=== PATIENT | male | born 1975 | race Caucasian/White ===

== ENCOUNTER → 2017-11-30 | Outpatient (CLI) | payer OTHER ==
[2017-11-30 09:21] LABS: BASOPHILS ABSOLUTE AUTO 0.09 K/mm3 (0.00-0.23); BASOPHILS PERCENT AUTO 1 % (0-2); EOSINOPHILS ABSOLUTE AUTO 0.31 K/mm3 (0.00-0.68); EOSINOPHILS PERCENT AUTO 4 % (0-6); Hematocrit 46.3 % (37.0-53.0); Hemoglobin 16.1 g/dL (13.5-17.5); IMMATURE GRAN ABSOLUTE AUTO 0.02 K/mm3 (0.00-0.10); IMMATURE GRAN PERCENT AUTO 0 % (0-1); LYMPHOCYTES ABSOLUTE AUTO 1.28 K/mm3 (0.84-5.20); LYMPHOCYTES PERCENT AUTO 17 % (21-46); MONOCYTES PERCENT AUTO 8 % (4-13); Mean Corpuscular HGB 31.7 pg (26.0-34.0); Mean Corpuscular HGB Conc 34.8 g/dL (31.5-36.5); Mean Corpuscular Volume 91 fL (80-100); Mean Platelet Volume 10.2 fL (9.1-12.4); NEUTROPHILS ABSOLUTE AUTO 5.13 K/mm3 (1.96-9.15); NEUTROPHILS PERCENT AUTO 69 % (41-73); Platelet Count 246 K/mm3 (150-400); RDW Coefficient Variation 12.2 % (11.7-14.2); RDW Standard Deviation 40.7 fL (35.1-46.3); Red Blood Cell Count 5.08 M/mm3 (4.30-5.90); White Blood Cell Count 7.43 K/mm3 (4.00-11.30)
[2017-11-30 12:52] LABS: Alanine Aminotransfer (ALT/SGP 76 U/L (12-78); Albumin, Blood 4.2 g/dL (3.4-5.0); Alk Phos 69 U/L (50-136); Anion Gap 8 mmol/L (6-16); Aspartate Aminotrans (AST/SGOT 47 U/L (12-37); Bilirubin, Total 0.6 mg/dL (0.1-1.0); Blood Urea Nitrogen 12 mg/dL (8-24); Bun/Creatinine Ratio 14.8 (12.0-20.0); CO2, Blood 26 mmol/L (21-32); Chloride, Blood 104 mmol/L (98-108); Creatinine, Blood 0.81 mg/dL (0.60-1.20); Globulin, Blood 4.1 g/dL (2.2-4.0); Glomerular Filtration Rate >60 (60-); Glucose, Blood 89 mg/dL (70-99); Sodium, Blood 138 mmol/L (136-145); Total Protein, Blood 8.3 g/dL (6.4-8.2)
== END | disposition home or self-care (01) ==
LOC: LAB SHORT 09:17 → LAB EV 09:17
PROVIDERS: General Practice
DX: B18.2 Chronic viral hepatitis C (principal)
CPT/HCPCS: 80053; 85025; 85651

== ENCOUNTER → 2018-05-20 | Outpatient (CLI) | payer OTHER ==
[2018-05-20 13:37] LABS: BASOPHILS ABSOLUTE AUTO 0.08 K/mm3 (0.00-0.23); BASOPHILS PERCENT AUTO 1 % (0-2); EOSINOPHILS ABSOLUTE AUTO 0.36 K/mm3 (0.00-0.68); EOSINOPHILS PERCENT AUTO 4 % (0-6); Hematocrit 45.6 % (37.0-53.0); Hemoglobin 15.7 g/dL (13.5-17.5); IMMATURE GRAN ABSOLUTE AUTO 0.03 K/mm3 (0.00-0.10); IMMATURE GRAN PERCENT AUTO 0 % (0-1); LYMPHOCYTES ABSOLUTE AUTO 1.12 K/mm3 (0.84-5.20); LYMPHOCYTES PERCENT AUTO 13 % (21-46); MONOCYTES ABSOLUTE AUTO 0.72 K/mm3 (0.16-1.47); MONOCYTES PERCENT AUTO 9 % (4-13); Mean Corpuscular HGB 31.9 pg (26.0-34.0); Mean Corpuscular HGB Conc 34.4 g/dL (31.5-36.5); Mean Corpuscular Volume 93 fL (80-100); Mean Platelet Volume 10.5 fL (9.1-12.4); NEUTROPHILS ABSOLUTE AUTO 6.03 K/mm3 (1.96-9.15); NEUTROPHILS PERCENT AUTO 72 % (41-73); Platelet Count 212 K/mm3 (150-400); RDW Coefficient Variation 12.4 % (11.7-14.2); RDW Standard Deviation 42.3 fL (35.1-46.3); Red Blood Cell Count 4.92 M/mm3 (4.30-5.90); White Blood Cell Count 8.34 K/mm3 (4.00-11.30)
== END | disposition home or self-care (01) ==
LOC: LAB EV 13:32 → LAB SHORT 13:32
PROVIDERS: Family Medicine
DX: T14.90XA Injury, unspecified, initial encounter (principal)
CPT/HCPCS: 85025; 85379

== ENCOUNTER 2018-11-30 05:49 | Emergency (ER) | payer OTHER ==
[~2018-11-30] VITALS: Ht 188 cm; Wt 70.3 kg
[2018-11-30] MEDS ORDERED: LAMICTAL ODT200 MG PO (07:36)
== END 2018-11-30 08:53 | disposition home or self-care (01) ==
LOC: ER 05:49
DX: S86.912A Strain of unspecified muscle(s) and tendon(s) at lower leg level, left leg, initial encounter (principal); Z88.8 Allergy status to other drugs, medicaments and biological substances; Z79.899 Other long term (current) drug therapy; X50.1XXA Overexertion from prolonged static or awkward postures, initial encounter
CPT/HCPCS: 29505; 73562-LT; 99283-25

== ENCOUNTER 2019-05-11 18:17 | Inpatient (IN) | payer OTHER ==
[~2019-05-11] VITALS: Ht 188 cm; Wt 71.1 kg
[~2019-05-11 18:17] MED LIST: LAMICTAL200 MG PO
[2019-05-11] MEDS ORDERED: QUETIAPINE FUM100 MG PO (18:33)
[2019-05-11 19:02] LABS: BASOPHILS ABSOLUTE AUTO 0.03 K/mm3 (0.00-0.23); BASOPHILS PERCENT AUTO 0 % (0-2); EOSINOPHILS PERCENT AUTO 0 % (0-6); Hemoglobin 15.8 g/dL (13.5-17.5); IMMATURE GRAN PERCENT AUTO 1 % (0-1); LYMPHOCYTES PERCENT AUTO 3 % (21-46); MONOCYTES ABSOLUTE AUTO 1.45 K/mm3 (0.16-1.47); MONOCYTES PERCENT AUTO 9 % (4-13); Mean Corpuscular HGB 32.4 pg (26.0-34.0); Mean Corpuscular HGB Conc 34.3 g/dL (31.5-36.5); Mean Corpuscular Volume 95 fL (80-100); Mean Platelet Volume 10.1 fL (9.1-12.4); NEUTROPHILS ABSOLUTE AUTO 13.45 K/mm3 (1.96-9.15); NEUTROPHILS PERCENT AUTO 87 % (41-73); Platelet Count 208 K/mm3 (150-400); RDW Coefficient Variation 13.6 % (11.7-14.2); RDW Standard Deviation 47.1 fL (35.1-46.3); Red Blood Cell Count 4.87 M/mm3 (4.30-5.90); White Blood Cell Count 15.53 K/mm3 (4.00-11.30)
[2019-05-11 19:08] LABS: Source, Urine Clean Catch
[2019-05-11 19:11] LABS: Bilirubin, Urine Neg (Neg); Blood, Urine 5+ (Neg); Glucose Qualitative, Urine Neg (Neg); Ketones, Urine 3+ (Neg); Leukocyte Esterase, Urine 1+ (Neg); Nitrite, Urine Neg (Neg); Protein, Urine 3+ (Neg); Urobilinogen, Urine NORM (Normal)
[2019-05-11 19:16] LABS: Appearance, Urine Clear (Clear); Color, Urine Yellow (P-Yellow)
[2019-05-11 19:18] LABS: Bacteria Few /hpf; Squamous Epithelial Cells Few /hpf (Few)
[2019-05-11 19:21] LABS: U Amphetamine Screen Not Detected; U Barbituate Screen Not Detected; U Benzodiazapine Screen Not Detected; U Cannabinoids Screen DETECTED; U Cocaine Screen Not Detected; U Methadone Screen Not Detected; U Methamphetamine Screen Not Detected; U Opiates Screen Not Detected; U Phencyclidine Screen Not Detected
[2019-05-11 19:22] LABS: U Buprenorphine Screen Not Detected; U Oxycodone Screen Not Detected; U Propoxyphene Screen Not Detected
[2019-05-11 19:26] LABS: Alanine Aminotransfer (ALT/SGP 207 U/L (12-78); Albumin, Blood 4.2 g/dL (3.4-5.0); Albumin/Globulin Ratio 1.1 (0.8-1.8); Alk Phos 83 U/L (50-136); Anion Gap 7 mmol/L (6-16); Aspartate Aminotrans (AST/SGOT 668 U/L (12-37); Bilirubin, Total 1.3 mg/dL (0.1-1.0); Blood Urea Nitrogen 24 mg/dL (8-24); Bun/Creatinine Ratio 26.1 (12.0-20.0); CO2, Blood 23 mmol/L (21-32); Calcium, Blood 9.3 mg/dL (8.5-10.1); Chloride, Blood 109 mmol/L (98-108); Creatinine, Blood 0.92 mg/dL (0.60-1.20); Ethanol (Alcohol), Blood, Med <3 mg/dL; Globulin, Blood 3.7 g/dL (2.2-4.0); Glomerular Filtration Rate >60 (60-); Glucose, Blood 108 mg/dL (70-99); Potassium, Blood 4.1 mmol/L (3.5-5.5); Salicylate 1.9 mg/dL (2.8-20.0); Sodium, Blood 139 mmol/L (136-145); Thyroxine (T4) 6.3 ug/dL (4.5-12.1); Total Protein, Blood 7.9 g/dL (6.4-8.2)
[2019-05-11 19:30] LABS: Thyroid Stimulating Hormone 0.706 uIU/mL (0.360-4.800)
[2019-05-11 19:38] LABS: Acetaminophen, Random <2.0 ug/mL (10.0-30.0)
[2019-05-11] MEDS ORDERED: Ventolin/Prove6.7 GM INH (21:33)
[2019-05-11 22:05] LABS: International Normalized Ratio 0.92; Prothrombin Time Results 9.9 Sec (9.7-11.5)
[2019-05-12 06:38] LABS: Alanine Aminotransfer (ALT/SGP 244 U/L (12-78); Albumin, Blood 3.2 g/dL (3.4-5.0); Albumin/Globulin Ratio 0.9 (0.8-1.8); Alk Phos 71 U/L (50-136); Anion Gap 7 mmol/L (6-16); Aspartate Aminotrans (AST/SGOT 869 U/L (12-37); Bilirubin, Total 1.3 mg/dL (0.1-1.0); Blood Urea Nitrogen 19 mg/dL (8-24); Bun/Creatinine Ratio 26.1 (12.0-20.0); CO2, Blood 23 mmol/L (21-32); Calcium, Blood 8.6 mg/dL (8.5-10.1); Chloride, Blood 110 mmol/L (98-108); Creatinine, Blood 0.73 mg/dL (0.60-1.20); Globulin, Blood 3.6 g/dL (2.2-4.0); Glomerular Filtration Rate >60 (60-); Glucose, Blood 87 mg/dL (70-99); Potassium, Blood 3.7 mmol/L (3.5-5.5); Sodium, Blood 140 mmol/L (136-145); Total Protein, Blood 6.8 g/dL (6.4-8.2)
--- NOTE | 2019-05-12 07:26 | NUR ---
REPORT/PROVIDER COMMUNICATION REPORT RECEIVED FROM CASEY HIDALGO IN ER. SPOKE WITH DR. GRULLON, PT'S DAY SHIFT HOSPITALIST, REGARDING REPORTED AGITATION AND POOR COMMUNICATION. NEW ORDER FOR HEAD CT. SPOKE WITH PT'S DAY SHIFT ER NURSE, SUNDAY. PLAN FOR CT ON WAY TO ICU.
--- NOTE | 2019-05-12 08:30 | NUR ---
ARRIVAL TO ICU PT ARRIVED TO ICU APPROX 0810 [address] COMPLETING HEAD CT. PT RESPONDS TO PAINFUL STIMULI, BUT MINIMALLY INTERACTIVE AND WORDS SLURRED. UNABLE TO UNDERSTAND. PT BECOMES AGITATED WITH MOVEMENT, ARMS SHAKING, PT REACHING UP INTO AIR. CALMS WITH DECREASED STIMULI. PT'S RIBS AND RIGHT HIP PAINFUL, PT YELLS, "OWE" WHEN SITES TOUCHED. VITALS STABLE. SPOKE WITH DR. GRULLON REGARDING FINDINGS. NEW ORDERS FOR XRAYS AND FURTHER LABS.
--- NOTE | 2019-05-12 08:30 | NUR ---
SUICIDE RISK REASSESSMENT PT UNABLE TO PARTICIPATE IN SUICIDE REASSESSMENT DUE TO LETHARGY.
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
--- NOTE | 2019-05-12 09:42 | NUR ---
CT/X-RAYS PER RADIOLOGY, PLAN FOR CHEST CT AND XRAYS AT 1130
[2019-05-12 09:49] LABS: BASOPHILS ABSOLUTE AUTO 0.04 K/mm3 (0.00-0.23); BASOPHILS PERCENT AUTO 0 % (0-2); EOSINOPHILS ABSOLUTE AUTO 0.02 K/mm3 (0.00-0.68); EOSINOPHILS PERCENT AUTO 0 % (0-6); Hematocrit 45.4 % (37.0-53.0); Hemoglobin 15.4 g/dL (13.5-17.5); IMMATURE GRAN ABSOLUTE AUTO 0.04 K/mm3 (0.00-0.10); IMMATURE GRAN PERCENT AUTO 0 % (0-1); LYMPHOCYTES ABSOLUTE AUTO 0.88 K/mm3 (0.84-5.20); LYMPHOCYTES PERCENT AUTO 7 % (21-46); MONOCYTES ABSOLUTE AUTO 1.08 K/mm3 (0.16-1.47); MONOCYTES PERCENT AUTO 9 % (4-13); Mean Corpuscular HGB 32.8 pg (26.0-34.0); Mean Corpuscular HGB Conc 33.9 g/dL (31.5-36.5); Mean Corpuscular Volume 97 fL (80-100); Mean Platelet Volume 10.1 fL (9.1-12.4); NEUTROPHILS ABSOLUTE AUTO 9.95 K/mm3 (1.96-9.15); NEUTROPHILS PERCENT AUTO 83 % (41-73); Platelet Count 157 K/mm3 (150-400); RDW Coefficient Variation 13.6 % (11.7-14.2); RDW Standard Deviation 48.5 fL (35.1-46.3); White Blood Cell Count 12.01 K/mm3 (4.00-11.30)
--- NOTE | 2019-05-12 15:54 | NUR ---
PROVIDER COMMUNICATION SPOKE WITH JONG AT POISON CONTROL, UPDATE PROVIDED. RECOMMENDING REPEAT INR, TYLENOL LEVEL AND LFT'S AT 1630. UPDATED DR. GRULLON ON RECOMMENDATIONS. ALSO UPDATED ON EVENTS OF AFTERNOON AND PT'S CURRENT CIWA. DR. GRULLON STATES SHE WILL PUT IN ORDERS.
--- NOTE | 2019-05-12 16:27 | NUR ---
PROVIDER COMMUNICATION SPOKE WITH DR. GRULLON REGARDING PT'S INCREASED CIWA AND NEED FOR ATIVAN. NEW ORDER FOR PRECEDEX.
--- NOTE | 2019-05-12 16:42 | NUR ---
LEFT MESSAGE FOR FLOWER PATTERSON FOR SAFETY PLAN
[2019-05-12 17:00] LABS: International Normalized Ratio 0.99; Prothrombin Time Results 10.6 Sec (9.7-11.5)
[2019-05-12 17:17] LABS: Alanine Aminotransfer (ALT/SGP 233 U/L (12-78); Albumin/Globulin Ratio 0.9 (0.8-1.8); Alk Phos 65 U/L (50-136); Aspartate Aminotrans (AST/SGOT 703 U/L (12-37); Bilirubin, Direct 0.2 mg/dL (0.0-0.3); Bilirubin, Indirect 0.9 mg/dL (0.1-0.7); Bilirubin, Total 1.1 mg/dL (0.1-1.0); Globulin, Blood 3.4 g/dL (2.2-4.0); Salicylate 2.7 mg/dL (2.8-20.0); Total Protein, Blood 6.4 g/dL (6.4-8.2)
[2019-05-12 17:18] LABS: Acetaminophen, Random <2.0 ug/mL (10.0-30.0)
--- NOTE | 2019-05-12 18:35 | NUR ---
POISON CONTROL/PROVIDER COMMUNICATION SPOKE WITH PALOMO AT POISON CONTROL, PROVIDED WITH UPDATE PER REQUEST. RECOMMEND TO STOP ACETYLCYSTEINE AND REPEAT SALICYLATE LAB EVERY 2 HOURS UNTIL TRENDING DOWN. SPOKE WITH DR. GRULLON, NEW ORDERS RECEIVED.
--- NOTE | 2019-05-12 18:47 | NUR ---
SUMMARY THROUGHOUT SHIFT, PT HAS PROGRESSIVELY BECOME MORE ALERT, BUT MUCH MORE AGITATED, HAVING HALLUCINATIONS, SEE VARIOUS CIWA ASSESSMENTS. PT REACHING FOR THINGS IN AIR, YELLING, SWINGING ARMS AND LEGS AROUNDS, SOMEWHAT REDIRECTABLE BUT BECOMES EXTREMELY FRUSTRATED. PT ATTEMPTS TO GET OUT OF BED, DOES NOT UNDERSTAND SITAUTION. MEDICATED WITH ATIVAN REPEATEDLY AND PT CONTINUES TO ESCALATE. PRECEDEX ORDERED PER DR. GRULLON. PRECEDEX TITRATED TO 0.7 MCG/KG/HR. PT CONTINUES TO WAKE UP, REACH FOR THINGS IN AIR, TALK ABOUT THINGS THAT AREN'T IN THE ROOM, PICK AT CORDS/LINES, BUT IS MORE REDIRECTABLE. PT CURRENTLY HAS EYES CLOTHED, BREATHING EVEN AND UNLABORED. VITALS STABLE. CONDOM CATH PLACED PT HAS REPEATEDLY LARGE AMOUNTS OF INCONTINENCE AND BECOMES AGITATED AND ATTEMPTS TO HIT STAFF, REQUIRING 3-4 STAFF MEMBERS FOR ALL ATTENDS CHANGES. PT'S GIRLFRIEND, OLAYIKNA, SPENT MAJORITY OF AFTERNOON WITH THE PATIENT. SHE REPORTS THAT PT'S FRIENDS TOLD HER HE HAS BEEN DRINKING HEAVILY THE LAST FEW WEEKS AFTER BEING SOBER FOR [address] GRULLON UPDATED THROUGHOUT THE DAY, SEE PREVIOUS NOTES.
--- NOTE | 2019-05-12 19:07 | NUR ---
BEDSIDE REPORT TO NEVIN RN TO ASSUME CARE
--- NOTE | 2019-05-12 20:05 | NUR ---
AROUSES TO VERBAL/ TACTILE STIMULI , HOWEVER GRUNTS TO ANY QUESTIONS DOES NOT ANSWER QUESTIONS
--- NOTE | 2019-05-12 20:44 | NUR ---
ASSUME CARE: BEDSIDE REPORT RECIEVED FROM OFF GOING RN BETTINA. MONITOR INTACT SHOWING SINUS RHYTHM. HEART RATE 70'S-80'S. AROUSES TO VERBAL/TACTILE STIMULI HOWEVER DOES NOT FOLLOW COMMANDS AND ONLY GRUNTS IN VOCAL RESPONSE. DOES NOT MAKE EYE CONTACT. LUNG SOUNDS CLEAR UPPER LOBES WITH DECREASED SOUNDS IN THE BASES. SPO2 95-97% ON ROOM AIR . RESPIRATIONS REGULAR AND EASY WHEN ASLEEP ABDOMEN SOFT WITH BOWEL SOUNDS FOUR QUADS CONDOM CATH INTACT DRAINING CLEAR YELLOW URINE. SKIN WARM DRY VARIOUS SCATTERED ECCYMOTIC AND ABRASIONED AREAS TO EXTREMITIES PEDAL PULSES PRESENT NO EDEMA NOTED. CONTINUE TO MONITOR AND REPORT CHANGE IN PATIENT CONDITION.
[2019-05-13 03:26] LABS: BASOPHILS ABSOLUTE AUTO 0.05 K/mm3 (0.00-0.23); BASOPHILS PERCENT AUTO 1 % (0-2); EOSINOPHILS ABSOLUTE AUTO 0.04 K/mm3 (0.00-0.68); EOSINOPHILS PERCENT AUTO 1 % (0-6); Hemoglobin 13.9 g/dL (13.5-17.5); IMMATURE GRAN ABSOLUTE AUTO 0.03 K/mm3 (0.00-0.10); IMMATURE GRAN PERCENT AUTO 0 % (0-1); LYMPHOCYTES ABSOLUTE AUTO 1.15 K/mm3 (0.84-5.20); LYMPHOCYTES PERCENT AUTO 13 % (21-46); MONOCYTES ABSOLUTE AUTO 0.73 K/mm3 (0.16-1.47); MONOCYTES PERCENT AUTO 9 % (4-13); Mean Corpuscular HGB 32.6 pg (26.0-34.0); Mean Corpuscular HGB Conc 33.9 g/dL (31.5-36.5); Mean Corpuscular Volume 96 fL (80-100); NEUTROPHILS ABSOLUTE AUTO 6.58 K/mm3 (1.96-9.15); NEUTROPHILS PERCENT AUTO 77 % (41-73); Platelet Count 127 K/mm3 (150-400); RDW Coefficient Variation 13.3 % (11.7-14.2); RDW Standard Deviation 47.4 fL (35.1-46.3); Red Blood Cell Count 4.27 M/mm3 (4.30-5.90); White Blood Cell Count 8.58 K/mm3 (4.00-11.30)
[2019-05-13 03:42] LABS: Alanine Aminotransfer (ALT/SGP 210 U/L (12-78); Albumin, Blood 2.8 g/dL (3.4-5.0); Albumin/Globulin Ratio 0.8 (0.8-1.8); Alk Phos 68 U/L (50-136); Anion Gap 7 mmol/L (6-16); Aspartate Aminotrans (AST/SGOT 521 U/L (12-37); Bilirubin, Total 0.9 mg/dL (0.1-1.0); Blood Urea Nitrogen 20 mg/dL (8-24); Bun/Creatinine Ratio 25.9 (12.0-20.0); CO2, Blood 23 mmol/L (21-32); Calcium, Blood 8.2 mg/dL (8.5-10.1); Chloride, Blood 111 mmol/L (98-108); Creatinine, Blood 0.77 mg/dL (0.60-1.20); Globulin, Blood 3.3 g/dL (2.2-4.0); Glomerular Filtration Rate >60 (60-); Glucose, Blood 76 mg/dL (70-99); Potassium, Blood 3.9 mmol/L (3.5-5.5); Sodium, Blood 141 mmol/L (136-145); Total Protein, Blood 6.1 g/dL (6.4-8.2)
--- NOTE | 2019-05-13 06:30 | NUR ---
SHIFT SUMMARY; RESTS QUIETLY WHEN UNDISTURBED MONITOR INTACT SHOWING SINUS RHYTHM HEART RATE 70'S-80'S. AROUSES TO VERBAL AND TACTILE STIMULI HOWEVER DOES NOT FOLLOW COMMANDS, OR MAKE EYE CONTACT. DENIES DESIRE TO HARM SELF. LUNG SOUNDS COARSE/ CLEAR WITH OCC WHEEZESAND INFREEQUENT NON PRODUCTIVE COUGH. ABDOMEN SOFT WITH BOWEL SOUNDS FOUR QUADS ABD TENDER ' SCATTERED ABRASIONS AND ECCYMOITIC AREAS SEE PHOTOS PEDAL PULSES PRESENT CONDOM CATH INTACT DRAINING CLEAR FLOR URINE. NO EDEMA NOTED CONTINUE TO MONITOR AND REPORT CHANGE IN PATIENT CONDITION.
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
--- NOTE | 2019-05-13 10:46 | NUR ---
POISON CONTROL SPOKE WITH SIRENA AT POISON CONTROL. NO NEW RECOMMENDATIONS.
--- NOTE | 2019-05-13 11:30 | NUR ---
PROVIDER COMMUNICATION DR. GRULLON AT BEDSIDE FOR ASSESSMENT. PT TELLS DR. GRULLON HE WILL KILL HIMSELF IF DISCHARGED. PLAN FOR FOLLOW UP WITH DR. SUTTON CONSULT AND CONTINUE TO TITRATE PRECEDEX DOWN. NEW ORDER FOR DIET.
--- NOTE | 2019-05-13 11:51 | NUR ---
[facility] REP IN ROOM TO TALK WITH PATIENT
--- NOTE | 2019-05-13 12:02 | NUR ---
[facility] RECOMMENDATIONS JO AT [facility] STATES THAT PT ALSO TELLS HER HE WILL KILL HIMSELF IF DISCHARGED. SAYS BOTH [facility] AND [facility] ARE ACCEPTING PATIENTS AT THIS TIME. WILL FOLLOW UP WITH DISCHARGE PLANNING ONCE [facility] SEES PATIENT AND MAKES RECOMMENDATIONS.
--- NOTE | 2019-05-13 12:33 | NUR ---
HIGH SUICIDE RISK TO BOTH [facility] REP AND MD, PT SAYS HE IS SUICIDAL, HAS A PLAN AND WILL CARRY IT OUT IF HE IS DISCHARGED TO THE STREETS. HE SAYS HE WILL NOT MAKE ANY MISTAKES THIS TIME AND WILL CARRY IT OUT, PER DR. GRULLON. WHEN ASSESSED BY THIS RN, PT SAYS YES HE IS SUICIDAL, BUT BECOMES IRRITATED AND IS NOT WILLING TO CONTINUE CONVERSATION. PT TEARFUL. GIRLFRIEND, OLAYINKA IS AT BEDSIDE AND APPEARS TO BE CALMING TO PATIENT. THEY ARE HAVING QUIET, CALM CONVERSATIONS. OFFERRED PT LUNCH, HE SAYS YES HE IS HUNGRY, BUT CONTINUES TO ENGAGE IN CONVERSATION WITH FLOWER. SET AT BEDSIDE FOR WHEN PT IS READY TO EAT. MADELAINE, CAPACITY PLANNING MANAGER NOTIFIED OF NEED FOR 1:1 SITTER. DIRECT 1 ON 1 OBSERVATION MAINTAINED WITH PATIENT UNTIL SITTER IS AVAILABLE.
--- NOTE | 2019-05-13 14:45 | NUR ---
TRANSFER UPDATED DR. GRULLON THAT PT IS OFF OF PRECEDEX, CALM AND COOPERATIVE, AND NOW HAS 1:1 SITTER DUE TO SUICIDAL IDEATION. OK TO TRANSFER TO MEDICAL FLOOR, CONTINUE WITH CARDIAC MONITORING.
--- NOTE | 2019-05-13 14:46 | NUR ---
PSYCH CONSULT SPOKE WITH DR. SUTTON WHO CONFIRMED HE WOULD BE BY TO EVALUATE PATIENT TODAY
--- NOTE | 2019-05-13 16:16 | NUR ---
PT UPDATE/PROVIDER COMMUNICATION PT HAS SLEPT MAJORITY OF AFTERNOON, BUT WOKE UP SLIGHTLY AGITATED, BUT REDIRECTABLE. PT ARGUMENTATIVE ABOUT PLAN OF CARE, BUT AGREEABLE WHEN FULLY EXPLAINED. CONCERNED ABOUT PSYCH MEDS. REMINDED HIM THAT DR. SUTTON WOULD BE BY TO ASSESS HIM AND WOULD LIKELY HAVE SUGGESTIONS. PT REPORTS WANTING TO LEAVE, BUT ALSO SAYS HE IS GOING TO KILL HIMSELF IF HE IS ON THE STREETS. SPOKE WITH DR. GRULLON ABOUT POSSIBLE LIBRIUM. HOLD OFF AND USE ATIVAN NEEDED UNTIL ASSESSED BY [facility]. NEW ORDER FOR NICOTINE PATCH.
--- NOTE | 2019-05-13 17:07 | NUR ---
SUICIDAL IDEATION WHILE EDUCATING PATIENT REGARDING PLAN OF CARE INCLUDING 1:1 OBSERVATION DUE TO SUICIDAL IDEATION, PT STATES, "OH HELL YES, FIRST CHANCE I GET." PT LOOKING AROUND IN ROOM AT VARIOUS ITEMS REPORTING "I AM LOOKING FOR THINGS THAT CAN HOLD WEIGHT." EMOTIONALLY LABILE. GOES FROM CALM, TO IRRITABLE, TO TEARFUL WITHIN A FEW MINUTES OF CONVERSATIONS. CONTINUED 1:1 SITTER BEING IMPLEMENTED.
--- NOTE | 2019-05-13 17:39 | NUR ---
HISTORY - ETOH PT REPORTS THAT HE HAS BEEN DRINKING 80 OZ OF BEER PER DAY FOR APPROXIMATELY 2-3 MONTHS BUT SAYS, "IT'S NOT ENOUGH TO MAKE ME GO THROUGH ALCOHOL WITHDRAW" PT EDUCATED.
--- NOTE | 2019-05-13 17:40 | NUR ---
PSYCH CONSULT DR. SUTTON TO BEDSIDE FOR ASSESSMENT
--- NOTE | 2019-05-13 18:00 | NUR ---
PSYCH CONSULT DR. SUTTON RECOMMENDING INPATIENT PSYCH TREATMENT AND CONTINUED 1:1 SITTER. MADELAINE, BODY BUILDER APPRENTICE UPDATED.
--- NOTE | 2019-05-13 19:10 | NUR ---
SUMMARY SEE PREVIOUS NOTES. 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 ALSO DRINKS LARGE AMOUNTS OF COFFEE DAILY. PROVIDED WITH COFFEE. VITALS STABLE. 1:1 SITTER CONTINOUSLY. PT'S GIRLFRIEND, FLOWER AT BEDSIDE THIS EVENING.
--- NOTE | 2019-05-13 19:52 | NUR ---
ASSUMED CARE OF PT AT 1915. REPORT RECEIVED AT BEDSIDE. PT PRESENTS IN BED. IN NO APPARENT DISTRESS. 1:1 SITTER. PT HAS VISITOR IN ROOM. NO ACTIONS OF SELF HARM AT THIS TIME. HAVE DONE ADDITIONAL MITIGATION OF ROOM DONE. WILL REVIEW CHART AND PLAN OF CARE FOR THIS PT.
--- NOTE | 2019-05-14 | NUR ---
PT HAS USED CALL LIGHT FREQUENTLY THIS EVENING FOR MULTIPLE NEEDS AND FOOD. PT HAS LARGE APPETITE. HAS ALSO COMPLAINED OF PAIN THIS EVENING WHICH HE STATES IS DIRECTLEY RESULT FROM PAST SEIZURE. CLAIMS PAIN IS 10/10. WHEN ASKED WHAT PT TAKES AT HOME FOR PAIN SUCH THIS, HE STATES HE TAKES TYLENOL. ELIZABETH MCCLURE OK'S TYLENOL TO BE GIVEN. PT'S CONDOM CATHETER COMES OFF, AND HE REQUESTS A NEW ONE SECONDARY THE CLAIMS IT IS TO PAINFUL TO MOVE SO HE CAN URINATE. WAS ABLE TO MOVE ABOUT AND USE URINAL ADEQUATELY.
--- NOTE | 2019-05-14 02:27 | NUR ---
PT HAS BEEN ABLE TO REPOSITION HIMSELF IN BED. IS CURRENTLY RESTING. SITTER AT DOORWAY FOR DIRECT OBSERVATION. PT DOES EXPRESS THAT IF HE WAS ALLOWED TO LEAVE HOSPITAL HE HAS PLANS TO ACT UPON HIS SUICIDAL THOUGHTS. PT ALSO HAS VOICED THAT HE IS SEEING SPOTS AND PATTERNS IN IS ROOM.
[2019-05-14 03:16] LABS: BASOPHILS ABSOLUTE AUTO 0.03 K/mm3 (0.00-0.23); BASOPHILS PERCENT AUTO 0 % (0-2); EOSINOPHILS ABSOLUTE AUTO 0.14 K/mm3 (0.00-0.68); EOSINOPHILS PERCENT AUTO 2 % (0-6); Hematocrit 41.4 % (37.0-53.0); Hemoglobin 14.4 g/dL (13.5-17.5); IMMATURE GRAN ABSOLUTE AUTO 0.02 K/mm3 (0.00-0.10); IMMATURE GRAN PERCENT AUTO 0 % (0-1); LYMPHOCYTES ABSOLUTE AUTO 1.49 K/mm3 (0.84-5.20); LYMPHOCYTES PERCENT AUTO 20 % (21-46); MONOCYTES ABSOLUTE AUTO 0.93 K/mm3 (0.16-1.47); MONOCYTES PERCENT AUTO 12 % (4-13); Mean Corpuscular HGB Conc 34.8 g/dL (31.5-36.5); Mean Corpuscular Volume 95 fL (80-100); Mean Platelet Volume 9.9 fL (9.1-12.4); NEUTROPHILS ABSOLUTE AUTO 4.88 K/mm3 (1.96-9.15); NEUTROPHILS PERCENT AUTO 65 % (41-73); Platelet Count 159 K/mm3 (150-400); RDW Standard Deviation 45.7 fL (35.1-46.3); Red Blood Cell Count 4.36 M/mm3 (4.30-5.90); White Blood Cell Count 7.49 K/mm3 (4.00-11.30)
[2019-05-14 03:38] LABS: Alanine Aminotransfer (ALT/SGP 185 U/L (12-78); Albumin, Blood 2.9 g/dL (3.4-5.0); Albumin/Globulin Ratio 0.9 (0.8-1.8); Alk Phos 70 U/L (50-136); Anion Gap 5 mmol/L (6-16); Aspartate Aminotrans (AST/SGOT 358 U/L (12-37); Blood Urea Nitrogen 14 mg/dL (8-24); Bun/Creatinine Ratio 17.2 (12.0-20.0); CO2, Blood 28 mmol/L (21-32); Calcium, Blood 8.1 mg/dL (8.5-10.1); Chloride, Blood 108 mmol/L (98-108); Creatinine, Blood 0.81 mg/dL (0.60-1.20); Globulin, Blood 3.4 g/dL (2.2-4.0); Glomerular Filtration Rate >60 (60-); Glucose, Blood 91 mg/dL (70-99); Potassium, Blood 3.7 mmol/L (3.5-5.5); Sodium, Blood 141 mmol/L (136-145); Total Protein, Blood 6.3 g/dL (6.4-8.2)
--- NOTE | 2019-05-14 06:30 | NUR ---
DR GRULLON COMES IN TO SEE PT. ORDERS RECEIVED. PT AWAKE IN ROOM. VISITING WITH SITTER. FERRO - PT'S GUEST CALLS TO ASK IF SHE CAN BRING HIM BISCUITS AND GRAVEY. PERMISSION GIVEN. TO BE INSPECTED BY STAFF. ORDER FOR DOUBLE PORTION MEALS MADE SECONDARY TO PT'S LARGE APPETITE. WILL CONTINUE TO MONITOR PT, AND WILL REPORT OFF TO ONCOMING RN.
--- NOTE | 2019-05-14 07:38 | NUR ---
Recieved report from Caleb PEÑA. Patient sitting up in bed with HOB at 30 degrees. He has sitter at entrance of room with constant observation. He is on RA and sats 98%. He still continues to state that he will harm himseld as he has nothing to live for and hopes going to a lock up facility will help him fiugure a few things out. Took patient small cup of coffee as requested. He has 3 IV's all dressings intact and sites WNL's and have been flushed and SL'd. He has Urinal at bedside and has 300 jim colored urine. He is pleasant and cooperative with his care. Girlfriend brought patient breakfast and gave him one plastic fork and notified sitter.
--- NOTE | 2019-05-14 09:30 | NUR ---
Patient has large BM and got very anxious cleaning himself up and advisewd him to call when needing help. Will be getting up in shower chair and get him cleaned up. VSS. Girlfriend in room and brought in breakfast and we supplied fork and has been removed from room when done. He still request placement and states if he went home he would harm self. He states he only uses bedpan at home. He tolerated am meds will.
--- NOTE | 2019-05-14 11:30 | NUR ---
Patti and Dr Andreina brewer been by and SS as well and are working on placement. He is stable and has been cooperative with care. He states wanting to hurt self and wants help in placement. VSS see EMR. He remains on RA and sats >90%.
--- NOTE | 2019-05-14 14:31 | NUR ---
Got patient up to bathroom with SBA assist with walker and he tolerated well both directions. He is no longer on tele per Dr Nichols. Patient currently resting.
--- NOTE | 2019-05-14 17:04 | NUR ---
Family at bedside. Patient is depressed and very anxious to find out when he is going and where .He states he really wants to start treatment to get on right path. He has been pleasant and cooperative with care and follows directions well. He remains on RA and is up with SBA with walker to bathroom. VSS see EMR. He is still very sure if he was rewaleased he would try to hurt himself again.
--- NOTE | 2019-05-14 23:08 | NUR ---
[facility]: SPECIAL EDUCATION SCIENCE TEACHER, FELIZ CALLED AT APPROX 2256 FROM [facility] TO VERIFY AND UPDATE INFORMATION ON PATINT FOR POSSIBLE PLACEMENT IN [place]. FELIZ WANTED UPDATED LAB VALUES, SENT AT APPROX 2325 VIA FAX. FELIZ ASKED MULTIPLE QUESTIONS AND WAS INFORMED THAT PATIENT IS MEDICAL STATUS, IS VOLUNTARILY SEEKING ASSISTANCE WITH HIS TREATMENT, IS PHYSICALLY STABLE AT THIS TIME AND THAT PATIENT HAS STATED THAT HE HAS A SAFE PLACE TO GO WITH HIS GIRLFRIEND IF OR UPON RELEASE. FELIZ STATED SHE WILL TALK WITH [facility] TOMORROW ABOUT DISCONTINUING THE 2 MD HOLD AND POSSIBLE PLACEMENT WITH THE [facility] TOMORROW. BED AVAILABILITY WAS NOT CONFIRMED BY [facility] WITH THIS COVERSATION.
--- NOTE | 2019-05-15 03:25 | NUR ---
SHIFT SUMMARY: PATIENT VERY COOPERATIVE AND CALM THIS SHIFT, VSS. PATIENT VERY HONEST ABOUT HIS SI (SEE CHART). INTAKE NURSE FROM [facility] INQUIRED ABOUT PATIENT THIS SHIFT (SEE PREVIOUS NOTE). VSS, SITTER PRESENT 1:1, BED LOW AND LOCKED, MONITORING CLOSELY.
[2019-05-15 04:57] LABS: Alanine Aminotransfer (ALT/SGP 196 U/L (12-78); Albumin, Blood 2.8 g/dL (3.4-5.0); Albumin/Globulin Ratio 0.8 (0.8-1.8); Alk Phos 76 U/L (50-136); Anion Gap 4 mmol/L (6-16); Aspartate Aminotrans (AST/SGOT 381 U/L (12-37); Bilirubin, Total 0.6 mg/dL (0.1-1.0); Blood Urea Nitrogen 9 mg/dL (8-24); CO2, Blood 28 mmol/L (21-32); Calcium, Blood 8.3 mg/dL (8.5-10.1); Chloride, Blood 110 mmol/L (98-108); Creatinine, Blood 0.75 mg/dL (0.60-1.20); Globulin, Blood 3.4 g/dL (2.2-4.0); Glomerular Filtration Rate >60 (60-); Glucose, Blood 108 mg/dL (70-99); Potassium, Blood 3.5 mmol/L (3.5-5.5); Sodium, Blood 142 mmol/L (136-145); Total Protein, Blood 6.2 g/dL (6.4-8.2)
--- NOTE | 2019-05-15 05:48 | NUR ---
PATIENT IS A TRANSFER FROM ICU 11. REPORT TAKEN FROM ROBYN PEÑA. PATIENT ARRIVED VIA W/C AND SITTER PRESENT IN ROOM. AXO X 3 AND SBA.
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
--- NOTE | 2019-05-15 18:35 | NUR ---
SHIFT SUMMARY. PT CHANGED TO MODERATE SUICIDE RISK THIS AFTERNOON AFTER DR. SUTTON REEVALUATED PT. PT IS PLEASANT, REPORTS HE IS STILL SUICIDAL BUT NOT WHILE INPATIENT. PT DENIES SOB, N/V, GOOD PO INTAKE. PT REPORTED PAIN TO "BUTT" THAT WAS MANAGED WELL WITH PRN APAP. NO OTHER CHANGES OR CONCERNS. AWAITING BED FOR INPATIENT PSYCH.
--- NOTE | 2019-05-15 21:53 | NUR ---
PATIENT RESTING AT THIS TIME. COOPERATIVE WITH CARE. DENIES PAIN, SOB, AND N/V. CALL LIGHT IN REACH.
--- NOTE | 2019-05-16 03:21 | NUR ---
SHIFT SUMMARY PATIENT HAD NO ACUTE CHANGES OBSERVED. AXOX 4 AND INDEPENDENT WITH FWW. NO SUICIDAL IDEATION NOTED. USES URINAL AT BEDSIDE. STAFF ASSIST WITH SANTOS TO LOCKED BATHROOM. VSS/AFEBRILE. DENIES PAIN, SOB, AND N/V. NO SITTER 1:1 WITH NOW MODERATE RISK. COOPERATIVE WITH CARE. CALL LIGHT IN REACH. BED IN LOWEST POSITION. WILL CONTINUE TO MONITOR UNITL DAY SHIFT NURSE ASSUMES CARE.
[2019-05-16 06:05] LABS: Albumin, Blood 3.4 g/dL (3.4-5.0); Albumin/Globulin Ratio 0.9 (0.8-1.8); Bilirubin, Direct 0.1 mg/dL (0.0-0.3); Bilirubin, Indirect 0.4 mg/dL (0.1-0.7); Bilirubin, Total 0.5 mg/dL (0.1-1.0); Globulin, Blood 3.9 g/dL (2.2-4.0); Total Protein, Blood 7.3 g/dL (6.4-8.2)
[2019-05-16] MEDS ORDERED: Seroquel Xr50 MG PO (11:59)
[2019-05-16] MEDS ORDERED: METO50ER PO (12:00)
[2019-05-16] MEDS ORDERED: NICO21TP TOP (12:01)
--- NOTE | 2019-05-16 14:26 | NUR ---
1425 PT DISHCARGED TO [facility] VIA SECURED TRANSPORT. PAPERWORK AND PT BELONGINGS SENT WITH AIDS COUNSELOR. IV REMOVED. NURSE TO NURSE REPORT WITH ANANDA COMPLETED EARLY THIS AFTERNOON. NO NEW CHANGES OR CONCERNS.
== END 2019-05-16 14:24 | DRG 917 ==
LOC: ER 18:17 → ICUW 18:18 → ERHOLD 18:18 → ICUW 05-12 08:10 → MEDS 05-12 08:10 → ICUW 05-12 15:47 → MEDS 05-15 05:40
PROVIDERS: Emergency Medicine; Student in an Organized Health Care Education/Training Program; ADMIT Internal Medicine
DX: T43.592A Poisoning by other antipsychotics and neuroleptics, intentional self-harm, initial encounter (principal); G92 Toxic encephalopathy; F31.64 Bipolar disorder, current episode mixed, severe, with psychotic features; R65.10 Systemic inflammatory response syndrome (SIRS) of non-infectious origin without acute organ dysfunction; I10 Essential (primary) hypertension; F19.10 Other psychoactive substance abuse, uncomplicated; R74.0 Nonspecific elevation of levels of transaminase and lactic acid dehydrogenase [LDH]; K76.0 Fatty (change of) liver, not elsewhere classified; G20 Parkinson's disease; F10.10 Alcohol abuse, uncomplicated; F17.210 Nicotine dependence, cigarettes, uncomplicated; Z87.820 Personal history of traumatic brain injury
CPT/HCPCS: 36415; 70450; 71111; 71260; 73501; 74177; 80053; 80076; 81001; 82947; 83605; 83735; 84145; 84436; 84443; 85025; 85610; 87040; 87086; 93005; 93010; 96361; 96365; 96366; 96368; 96372; 96375; 96376; 99285-25; A9270; G0378; G0480; J0132; J0696; J1650; J2060; J7060; J7070; J7120; Q9967